=== PATIENT | male | born 1970 | race Caucasian/White ===

== ENCOUNTER → 2019-03-09 | Outpatient (CLI) | payer OTHER, SELFPAY ==
[2019-03-09 12:55] LABS: Absolute Lymphocyte Count 1.18 X10^3/ul (0.83-4.51); Absolute Neutrophil Count 2.2 X10^3/uL (2.0-7.7); Basophil# 0.06 X10^3/uL; Basophil% 1.5 % (0-1); Eosinophil# 0.16 X10^3/uL; Hematocrit 44.1 % (40-54); Hemoglobin 15.4 g/dl (13.0-16.5); Lymphocyte # 1.18 X10^3/ul (4.0); Lymphocyte % 29.4 % (19-41); Mean Corp Hgb Conc 34.9 g/gl (32-36); Mean Corpuscular Hgb 34.3 pg (27.0-32.0); Mean Corpuscular Volume 98.2 fL (80-94); Mean Platelet Vol. 9.2 fl (6.2-12.0); Monocyte# 0.42 X10^3/uL; Monocyte% 10.5 % (0-10); Neutrophil # 2.19 X10^3/uL (2.7-7.7); Neutrophil % 54.6 % (47-70); Platelet Count 272 K/mm3 (150-450); RBC Distribution Width CV 12.7 % (11.6-14.6); RBC Distribution Width SD 44.6 fl (35.1-43.9); Red Blood Count 4.49 M/mm3 (4.6-6.2)
[2019-03-09 12:57] LABS: POSITIVE COUNT NO; POSITIVE DIFFERENTIAL NO; POSITIVE MORPHOLOGY NO
[2019-03-09 13:22] LABS: ALB/GLOB Ratio 1.1 RATIO (0.9-2.4); AST(SGOT) 39 U/L (15-37); Alanine Aminotransfer ALT/SGPT 52 U/L (16-61); Albumin, Serum 4.4 g/dL (3.2-5.0); Alkaline Phosphatase 76 U/L (45-117); Anion Gap 7 (5-15); BUN 9 mg/dL (7-18); BUN/Creat Ratio 10.7 RATIO (10-20); Calcium,Total 9.1 mg/dL (8.5-10.1); Chloride 107 mmol/L (98-107); Creatinine, Serum 0.84 mg/dL (0.70-1.30); EST Glomerular Filtration Rate 104 mL/min (>60); Est Glom Filt Rate - Afr Amer 126 mL/min (>60); Glucose 75 mg/dL (74-106); Potassium 3.7 mmol/L (3.5-5.1); Protein, Total 8.4 g/dL (6.4-8.2); Sodium Level 142 mmol/L (136-145)
[2019-03-13 07:07] LABS: QNTFERON TB Mitogen Value > 10.00 IU/mL (.); QNTFERON TB Nil Value 0.02 IU/mL (.); QNTFERON TB1+ Ag Value 0.03 IU/mL (.); QNTFERON TB2+ Ag Value 0.02 IU/mL (.)
[2019-03-13 17:43] LABS: QNTIFERON TB Positive Criteria Negative (Negative)
== END | disposition home or self-care (01) ==
LOC: MTLAB 11:48
PROVIDERS: Family Provider Family Medicine; PCP Family Medicine; Referring Provider Internal Medicine Rheumatology; Visit Provider Internal Medicine Rheumatology
DX: L40.59 Other psoriatic arthropathy (principal); L40.9 Psoriasis, unspecified; F41.9 Anxiety disorder, unspecified; Z79.899 Other long term (current) drug therapy
CPT/HCPCS: 36415; 80053; 85025; 86480

== ENCOUNTER → 2020-01-18 15:23 | Outpatient (CLI) | payer OTHER, SELFPAY ==
[2020-01-18 17:20] LABS: Absolute Lymphocyte Count 1.29 X10^3/uL (0.83-4.51); Absolute Neutrophil Count 3.5 X10^3/uL (2.0-7.7); Basophil# 0.06 X10^3/uL; Basophil% 1.1 % (0-1); Eosinophil# 0.08 X10^3/uL; Eosinophils% 1.5 % (0-5); Hematocrit 46.1 % (40-54); Lymphocyte # 1.29 X10^3/ul (4.0); Lymphocyte % 23.5 % (19-41); Mean Corp Hgb Conc 32.5 g/dL (32-36); Mean Corpuscular Hgb 30.5 pg (27.0-32.0); Mean Corpuscular Volume 93.9 fL (80-94); Mean Platelet Vol. 8.6 fl (6.2-12.0); Monocyte# 0.56 X10^3/uL; Monocyte% 10.2 % (0-10); NRBC Flagged by Analyzer 0 % (0-5); Neutrophil % 63.5 % (47-70); Platelet Count 301 K/mm3 (150-450); RBC Distribution Width CV 12.3 % (11.6-14.6); RBC Distribution Width SD 42.6 fl (35.1-43.9); Red Blood Count 4.91 M/mm3 (4.6-6.2); White Blood Count 5.5 K/mm3 (4.4-11.0)
[2020-01-18 17:39] LABS: AST(SGOT) 18 U/L (15-37); Alanine Aminotransfer ALT/SGPT 20 U/L (16-61); Albumin, Serum 4.2 g/dL (3.2-5.0); Alkaline Phosphatase 106 U/L (45-117); Anion Gap 3 (5-15); BUN 10 mg/dL (7-18); BUN/Creat Ratio 11.4 RATIO (10-20); Chloride 106 mmol/L (98-107); Creatinine, Serum 0.88 mg/dL (0.70-1.30); EST Glomerular Filtration Rate 99 mL/min (>60); Est Glom Filt Rate - Afr Amer 120 mL/min (>60); Globulin 4.2 g/dL (2.2-4.2); Glucose 77 mg/dL (74-106); Protein, Total 8.4 g/dL (6.4-8.2); Sodium Level 140 mmol/L (136-145)
== END ==
LOC: MTLAB 15:25
PROVIDERS: PCP Family Medicine; Referring Provider Internal Medicine Rheumatology; Visit Provider Internal Medicine Rheumatology
DX: L40.59 Other psoriatic arthropathy (principal); L40.9 Psoriasis, unspecified; F41.9 Anxiety disorder, unspecified; K76.0 Fatty (change of) liver, not elsewhere classified; Z79.899 Other long term (current) drug therapy
CPT/HCPCS: 36415; 80053; 85025

== ENCOUNTER 2021-03-08 14:06 | Emergency (ER) | payer MEDICAID, SELFPAY ==
[2021-03-08 14:07] VITALS: BP 128/83; PULSE 115; RESP 18; TEMP 36.2; O2SAT 97; BMI 25.6
--- NOTE | 2021-03-08 14:13 | ED.VIS.GEN ---
History of Present Illness Chief Complaint: Lower Extremity Injury Informant: Patient Narrative: 50-year-old male with history of psoriatic arthritis presenting with left knee pain and foot pain which has been present for months. To the best I can get the history from the patient as he is a poor informant it seems like it has been between 9 and 10 months. Patient states that he was previously on Humira and believes another medication was Cosentyx. He was seen by Dr. George previously but since he lost his job and insurance he has not been able to follow-up with him. It does not sound as if he has made much effort to establish with somebody in follow-up but has been seen at [facility] a few weeks ago for the same symptoms. He was also seen by his new primary care doctor, Dr. Coffman, who is trying to get him established at [facility] [place]. Patient states he has an appointment next week to be seen and is post to be restarted back on his Humira. He states his primary care doctor could not start him on Humira and so he does not have this. It appears that his left knee has been swollen for several months. He is ambulatory on it. He denies any trauma. He also has redness to his toes bilaterally including all of his toes. He does not have any paresthesias however he states his feet do hurt. He has not had any fever, chills, nausea, vomiting. Past Medical History - Allergies and Home Meds Allergies/Adverse Reactions: Allergies No Known Allergies Allergy (Verified 03/08/21 14:10) Primary Care Physician: Nemesio Coffman MD [Primary Care Provider] - Past Medical History: - - Psoriatic arthritis, anxiety Surgical History: noncontributory Lives: Alone Smoking Status: Unknown if ever smoked Alcohol: None Drugs: None Review of Systems General: Denies: Chills, Fever, Sweats Eyes: Denies: Visual changes - bilaterally, Diplopia ENT: Denies: Rhinorrhea, Sore throat Cardiovascular: Denies: Chest pain, Palpitations Respiratory: Denies: Dyspnea, Cough, Dyspnea on exertion Gastrointestinal: Denies: Abdominal pain, Nausea, Vomiting, Diarrhea, Melena, Hematochezia Genitourinary: Denies: Dysuria, Hematuria, Frequency Musculoskeletal: Reports: Swelling - Left knee pain and swelling. Bilateral toe erythema including all toes. Skin: Reports: Rash - As described above Neurological: Denies: Headache, Weakness Psych: Denies: Depression, Anxiety Endocrine: Denies: Polyuria, Polydipsia Physical Exam Vital Signs/Narrative: Vital Signs Temp Pulse Resp BP Pulse Ox 03/08/21 14:07 97.2 F L 115 H 18 128/83 H 97 Inital Vital Signs reviewed: Yes General: Well nourished, No Acute Distress Head: Normocephalic, Atraumatic Eyes: Perrl, EOMI ENT: Moist mucous membranes, No rhinorrhea Cardiovascular: Regular rate, Regular rhythm Respiratory: No distress, CTA bilaterally Back: Normal Inspection Extremities: - - Left knee is diffusely swollen. It has full range of motion in flexion and extension. No short arc range of motion pain. There is no redness or erythema overlying the left knee. Bilateral feet have erythema X 10 toes. Brisk cap refill X 10 toes. There warmth. DP/PT +2 and symmetric Skin: Normal color - As described above Neurological: Alert, Oriented x3 Psychological: Normal affect, Normal Mood Diagnostic/Tx/Re-eval - Medical Decision Making 50-year-old male presenting with bilateral foot erythema as well as left knee swelling. He has a history of psoriatic arthritis. This appears to be a chronic issue on both parts. Patient was recently seen [facility] a few weeks ago and was put on steroids which did somewhat help. He is also put on Keflex 3 times daily. Patient does have an appointment with [facility]. He is going to see them next week. Patient's left knee is swollen but there is no warmth, loss of range of motion. I do not believe he needs arthrocentesis at this time emergently. I have no suspicion for septic joint. His bilateral feet are erythematous at the toes but this is been ongoing for what sounds like months. Patient has no systemic signs or symptoms. Patient will be started on an extended prednisone taper and placed on clindamycin until he can see his doctor next week. Patient is given return precautions. He is stable at discharge. Impression: 1. History of psoriatic arthritis 2. Left knee swelling ED Disposition - Plan for ED Patient: Disposition: Home or Assisted Living Prescriptions: Clindamycin [Cleocin] 300 mg PO TID 10 Days #90 capsule Prescription Printed Prednisone 10 mg PO DAILY #63 tablet Prescription Printed Referrals: Nemesio Coffman MD [Primary Care Provider] - Dwain Bal DO [STAFF PHYSICIAN] - Additional Instructions: You have psoriatic arthritis and erythema to the toes. I am going to give you antibiotics to make sure that your feet do not worsen. I am also going to place you on an extended prednisone taper intake and follow-up with your rheumatology professional.
[2021-03-08] MEDS: Clindamycin HCl 150 MG Capsule 450 MG PO (15:19)
[2021-03-08] MEDS: HYDROcodone Bitartrate/Apap 5/325 Tablet PO (15:20)
[2021-03-08] MEDS: predniSONE 20 MG Tablet 60 MG PO (15:20)
--- NOTE | 2021-03-08 15:27 | ED.VIS.GEN ---
History of Present Illness Chief Complaint: Lower Extremity Injury Informant: Patient Past Medical History - Allergies and Home Meds Allergies/Adverse Reactions: Allergies No Known Allergies Allergy (Verified 03/08/21 14:10) Primary Care Physician: Dwain Bal DO [STAFF PHYSICIAN] - Nemesio Coffman MD [Primary Care Provider] - Surgical History: noncontributory Lives: Alone Smoking Status: Never smoker Alcohol: None Drugs: None Physical Exam Vital Signs/Narrative: Vital Signs Temp Pulse Resp BP Pulse Ox 03/08/21 14:07 97.2 F L 115 H 18 128/83 H 97 ED Disposition - Plan for ED Patient: Disposition: Home or Assisted Living Instructions: ED Knee Effusion Prescriptions: RX: Clindamycin [Cleocin] 300 mg PO TID 10 Days #90 capsule Prescription Printed RX: Prednisone 10 mg PO DAILY #63 tablet Prescription Printed Referrals: Dwain Bal DO [STAFF PHYSICIAN] - Nemesio Coffman MD [Primary Care Provider] - Additional Instructions: You have psoriatic arthritis and erythema to the toes. I am going to give you antibiotics to make sure that your feet do not worsen. I am also going to place you on an extended prednisone taper intake and follow-up with your rheumatology professional.
== END 2021-03-08 15:30 | disposition home or self-care (01) ==
PROVIDERS: Emergency Provider Student in an Organized Health Care Education/Training Program; PCP Family Medicine
DX: M79.89 Other specified soft tissue disorders (principal)
CPT/HCPCS: 99283

== ENCOUNTER 2021-08-12 13:33 | Inpatient (IN) | payer MEDICAID, SELFPAY ==
[2021-08-12] VITALS (8 sets, daily range): BP systolic 133–166; BP diastolic 88–108; PULSE 80–129; RESP 13–20; TEMP 36.4–37.4; O2SAT 91–99; BMI 25.0; BMI 23.3
--- NOTE | 2021-08-12 13:53 | EKG12_ITS ---
Test Reason : SEIZURE Blood Pressure : / mmHG Vent. Rate : 122 BPM Atrial Rate : 122 BPM P-R Int : 176 ms QRS Dur : 090 ms QT Int : 306 ms P-R-T Axes : 066 064 043 degrees QTc Int : 436 ms Sinus tachycardia Otherwise normal ECG Confirmed by BELIA BETTS, BAUTISTA ([id number]), editor greeting card SAMARA GUNDERSON ([id number]) on 08/17/2021 7:30:19 AM Referred By: SHANNAN Confirmed By:BAUTISTA CELAYA MD
[2021-08-12] MEDS: LORazepam 2 MG/ML Syringe 1 MG IV (14:00)
--- NOTE | 2021-08-12 14:00 | EX.ED.DYSGE1 ---
HPI History of Present Illness Chief Complaint: Substance Abuse Informant: family Narrative Narrative: Patient presented by private vehicle with uncle for alcohol assistance. Upon placement in the room [place] was called due to unresponsiveness with foaming at the mouth. Apparently had a seizure. On arrival patient had some drooling at the mouth there is no active tonic-clonic issues, he awakened with post ictal confusion. History from uncle he has been drinking 30 years. Recently's seen 180 for outpatient help. No seizure history. Last drink was yesterday. History of psoriatic arthritis with injections weekly. History of anxiety not on any medications. Prior similar symptoms: No PFSH PFSH Medical History (Updated 08/12/21 @ 17:[address] Carmella Shay MD) HTN (hypertension) Psoriatic arthritis Home Medications alprazolam 0.5 mg PO TID PRN PRN 08/12/21 [History Last Taken Unknown] atenolol 50 mg PO DAILY 08/12/21 [History Last Taken 08/11/21] Allergy/AdvReac Type Severity Reaction Status Date / Time No Known Allergies Allergy Verified 08/12/21 13:35 Family History (Updated 08/12/21 @ 17:[address] Carmella Shay MD) Mother Cancer breast Father No problems noted. Surgical History (Updated 08/12/21 @ 17:[address] Carmella Shay MD) H/O hernia repair Social History (Updated 08/12/21 @ 17:[address] Carmella Shay MD) household members: none Smoking Status: Never smoker alcohol intake: current substance use type: prescription drug ROS ROS ED ROS Narrative Limited on initial evaluation due to post ictal. EXAM Physical Exam Const Vital Signs: 08/12/21 13:33 08/12/21 14:31 08/12/21 14:33 Temperature 97.6 F L Temperature Source Temporal Pulse Rate 129 H 116 H 115 H Respiratory Rate 16 18 16 Blood Pressure 163/108 H 136/88 H 136/88 H Blood Pressure Mean 126 104 104 Blood Pressure Source Monitor Blood Pressure Position Semi-Fowlers Blood Pressure Location Left Arm Pulse Ox 97 91 91 Oxygen Delivery Method Room Air Room Air Room Air 08/12/21 15:16 Temperature Temperature Source Pulse Rate 108 H Respiratory Rate 13 Blood Pressure 133/95 H Blood Pressure Mean 107 Blood Pressure Source Blood Pressure Position Blood Pressure Location Pulse Ox 97 Oxygen Delivery Method Room Air Positive well nourished and well developed General Appearance ED: well developed and NAD HEENT Reports moist mucous membranes HEENT Narrative: No tongue abrasions. normocephalic and atraumatic Eyes PERRL, EOMs intact bilaterally and conjunctivae normal General Eye ED: Yes normal appearance of both eyes Neck no lymphadenopathy and supple General: Negative for tenderness Chest Wall Chest: Negative for tenderness Resp normal respiratory effort and normal air movement Effort and Inspection: symmetric chest movement; Negative for respiratory distress Cardio regular rhythm and no murmurs Rate: tachycardic Peripheral Pulses: pulses 2+ throughout GI normal to inspection, nondistended, normoactive bowel sounds and non-tender Palpation: Negative for guarding or rebound tenderness present Back/Spine no CVA tenderness and no thoracic nor lumbar tenderness Extremity normal to inspection General Extremety ED: Negative for edema or tenderness General Extremity: Negative for edema Neuro no sensory deficits noted Neuro Narrative: Alert and oriented to person and place on exam. Is off on the year. Moving all 4 extremities. Sensorium / Orientation: awake and alert Skin no rashes or lesions noted and no wounds MDM MDM MDM Narrative Medical decision making narrative: Patient was not an active seizure during my eval mild post ictal. He is tachycardic he is given 1 mg of Ativan. Fluids were given. Labs were drawn noted potassium 3.1 magnesium added. Was ordered for oral potassium. Transaminitis from labs likely from alcohol. Alcohol returned at 54. Tox screen positive for benzos he was given Ativan in addition rediscussion he takes as needed Xanax stating he took 1 mg dose this morning however does not take this often. Heart rate reevaluation improving low 100s. Is alert and oriented x3 and reevaluation. He had no abdominal pain on examination. I discussed with hospitalist, Dr. Shay for admission to [facility] telemetry. Lab Data Attestation: I reviewed the patient's lab results. Labs: Laboratory Results - last 24 hr 08/12/21 08/12/21 08/12/21 13:50 13:50 13:50 WBC 7.0 RBC 4.79 Hgb 16.3 Hct 49.0 MCV 102.3 H MCH 34.0 H MCHC 33.3 RDW Std Deviation 45.5 H RDW Coeff of Josie 12.0 Plt Count 120 L MPV 9.9 Immature Gran % (Auto) 0.300 Neut % (Auto) 66.4 Lymph % (Auto) 18.7 L [place] % (Auto) 13.1 H Eos % (Auto) 0.3 Baso % (Auto) 1.2 H Absolute Neuts (auto) 4.6 Absolute Lymphs (auto) 1.30 Nucleated RBC % 0 Sodium 142 Potassium 3.1 L Chloride 96 L Carbon Dioxide 18.0 L Anion Gap 28 H BUN 5 L Creatinine 1.16 Estim Creat Clear Calc 88.01 Est GFR (MDRD) Af Amer 86 Est GFR (MDRD) Non-Af 71 BUN/Creatinine Ratio 4.3 L Glucose 105 Calcium 9.7 Magnesium Total Bilirubin 3.60 H AST 539 H ALT 193 H Alkaline Phosphatase 208 H Total Protein 9.2 H Albumin 4.4 Globulin 4.8 H Albumin/Globulin Ratio 0.9 TSH Urine Opiates Screen Urine Methadone Screen Ur Barbiturates Screen Ur Phencyclidine Scrn Ur Amphetamines Screen U Methamphetamin-MDMA U Benzodiazepines Scrn Urine Cocaine Screen U Cannabinoids Screen Ur Drug Screen Comment Ethyl Alcohol 54.0 08/12/21 08/12/21 08/12/21 13:50 13:50 13:50 WBC RBC Hgb Hct MCV MCH MCHC RDW Std Deviation RDW Coeff of Josie Plt Count MPV Immature Gran % (Auto) Neut % (Auto) Lymph % (Auto) [place] % (Auto) Eos % (Auto) Baso % (Auto) Absolute Neuts (auto) Absolute Lymphs (auto) Nucleated RBC % Sodium Potassium Chloride Carbon Dioxide Anion Gap BUN Creatinine Estim Creat Clear Calc Est GFR (MDRD) Af Amer Est GFR (MDRD) Non-Af BUN/Creatinine Ratio Glucose Calcium Magnesium 1.5 L Total Bilirubin AST ALT Alkaline Phosphatase Total Protein Albumin Globulin Albumin/Globulin Ratio TSH 0.80 Urine Opiates Screen NEGATIVE Urine Methadone Screen NEGATIVE Ur Barbiturates Screen NEGATIVE Ur Phencyclidine Scrn NEGATIVE Ur Amphetamines Screen NEGATIVE U Methamphetamin-MDMA NEGATIVE U Benzodiazepines Scrn POSITIVE H Urine Cocaine Screen NEGATIVE U Cannabinoids Screen NEGATIVE Ur Drug Screen Comment Ethyl Alcohol EKG Initial EKG: Attestation: I personally reviewed and interpreted this EKG as follows: Comments: Sinus tachycardia rate of 122, no ST or T wave changes. QTc 436. Discharge Plan Dx/Rx/DC Orders Clinical Impression: Alcohol withdrawal seizure, Chronic alcohol abuse, Hypokalemia, Alcoholic hepatitis Disposition Disposition: Acute Care Hospital [facility] Discharge Date/Time: 08/12/21 16:37
--- NOTE | 2021-08-12 14:06 | ED.RN ---
THIS RN WAS WALKING IN THE HALLWAY WHEN UNCLE STEPPED INTO [place] AND STATED THE PATIENT NEEDED HELP. UPON ENTRY TO THE ROOM PT WAS CYANOTIC AND WAS NOT BREATHING. STAFF ASSIST BUTTON PRESSED. PT WAS NOT SEIZING AT THIS TIME. PT RETURNED TO CONSCIOUSNESS 1 MINUTE LATER AND WAS BREATHING UNASSISTED, PT SLIGHTLY DISORIENTED.
--- NOTE | 2021-08-12 14:14 | CM.ED ---
SOCIAL WORK Patient with seizure in ER. Responded to Code. Patient's uncle at bedside. Patient presents for detox from alcohol. Patient and uncle have been in contact with [facility]. Will update Treatment Navigator upon patient's admission. George Worrell, FUR SCRAPER, LAWN SPRINKLER INSTALLER
[2021-08-12 14:22] LABS: Absolute Neutrophil Count 4.6 X10^3/uL (2.0-7.7); Basophil# 0.08 X10^3/uL; Basophil% 1.2 % (0-1); Eosinophil# 0.02 X10^3/uL; Eosinophils% 0.3 % (0-5); Hemoglobin 16.3 g/dL (13.0-16.5); Lymphocyte % 18.7 % (19-41); Mean Corp Hgb Conc 33.3 g/dL (32-36); Mean Corpuscular Volume 102.3 fL (80-94); Mean Platelet Vol. 9.9 fl (6.2-12.0); Monocyte# 0.91 X10^3/uL; Monocyte% 13.1 % (0-10); NRBC Flagged by Analyzer 0 % (0-5); Neutrophil # 4.62 X10^3/uL (2.7-7.7); Neutrophil % 66.4 % (47-70); Platelet Count 120 K/mm3 (150-450); RBC Distribution Width SD 45.5 fl (35.1-43.9); Red Blood Count 4.79 M/mm3 (4.6-6.2)
[2021-08-12] MEDS: 0.9% Normal Saline 1,000 ML 1000 ML IV (14:24)
[2021-08-12] MEDS: 0.9% Normal Saline 1,000 ML 150 ML IV ×2 (14:32→20:47)
[2021-08-12 14:33] LABS: Amphetamine Urine VISTA NEGATIVE (<1000 ng/mL); Barbiturate Urine VISTA NEGATIVE (< 200 ng/mL); Benzodiazepine Urine VISTA POSITIVE (< 200 ng/mL); Cocaine Urine VISTA NEGATIVE (< 300 ng/mL); Ecstacy Urine VISTA NEGATIVE (< 500 ng/mL); Methadone Urine VISTA NEGATIVE (< 300 ng/mL); PCP Urine VISTA NEGATIVE (< 25 ng/mL); THC Urine VISTA NEGATIVE (< 50 ng/mL); Vista UDS pH Range 5
[2021-08-12 14:37] LABS: ALB/GLOB Ratio 0.9 RATIO (0.9-2.4); AST(SGOT) 539 U/L (15-37); Alanine Aminotransfer ALT/SGPT 193 U/L (16-61); Albumin, Serum 4.4 g/dL (3.2-5.0); Alkaline Phosphatase 208 U/L (45-117); Anion Gap 28 (5-15); BUN 5 mg/dL (7-18); BUN/Creat Ratio 4.3 RATIO (10-20); Calcium,Total 9.7 mg/dL (8.5-10.1); Chloride 96 mmol/L (98-107); Creatinine, Serum 1.16 mg/dL (0.70-1.30); EST Glomerular Filtration Rate 71 mL/min (>60); Est Glom Filt Rate - Afr Amer 86 mL/min (>60); Estimated Creatinine Clearance 88.01 ml/min; Globulin 4.8 g/dL (2.2-4.2); Glucose 105 mg/dL (74-106); Potassium 3.1 mmol/L (3.5-5.1); Protein, Total 9.2 g/dL (6.4-8.2); Sodium Level 142 mmol/L (136-145)
--- NOTE | 2021-08-12 14:49 | CHAPLAIN ---
Type of Pastoral Visit ___ Initial Visit ___ Follow-up Visit ___ On-call Visit ___ General Patient Visit ___ Spiritual Assessment ___ Family Conference ___ Bereavement ___ Rapid Response _x__ Code Blue ___ Other (describe below) Pastoral Care Referral From ___ Patient ___ Family ___ Nurse ___ Physician ___ [place] ___ Nipple Maker _x__ Other (describe below) Sacrament/Intervention ___ Active listening ___ Anointing ___ Scientology ___ Bereavement ___ Communion ___ Tami exploration ___ ___ Life review ___ Prayer ___ Reconciliation ___ Sacrament of Sick _x__ Supportive presence ___ Wedding ___ Other (describe below) Pastoral Comments came to ED for the code blue; code blue was dismissed as patient quickly revived; offered support to family member; pt will be staying in hospital to enter the [facility] program due to alcohol abuse; introduced self and role to pt and gave offer of further support while admitted; pt was given meds and is sleepy now
[2021-08-12] MEDS: Potassium Chloride Oral Tablet 20 MEQ 60 MEQ PO ×2 (15:25→17:55)
--- NOTE | 2021-08-12 15:25 | PCM.HP.STD ---
[facility] - General General Date of Admission: 08/12/21 Date of Service: 08/12/21 Chief Complaint: Request for stabilization from alcohol withdrawal. HPI Narrative MYLA OMALLEY, is a 50 M who presents with the above. Patient drinks about half a gallon of rum a day. He has been doing that for about 1 year. His last drink was run with Pepsi the night before. He woke up this morning vomiting. His family member brought him to the ED. Patient had a seizure episode in the ED this afternoon. A CODE BLUE was called because he was unresponsive and foaming at the mouth. Patient was drooling, had post ictal confusion. Apparently had the seizure activity ongoing for about a minute. There were no active tonic-clonic issues. Vitals was reviewed in the ED. Heart rate is elevated. [facility] Medical History (Updated 08/12/21 @ 17:[address] Carmella Shay MD) HTN (hypertension) Psoriatic arthritis Home Medications alprazolam 0.5 mg PO TID PRN PRN 08/12/21 [History Last Taken Unknown] atenolol 50 mg PO DAILY 08/12/21 [History Last Taken 08/11/21] Allergy/AdvReac Type Severity Reaction Status Date / Time No Known Allergies Allergy Verified 08/12/21 13:35 Family History (Updated 08/12/21 @ 17:[address] Carmella Shay MD) Mother Cancer breast Father No problems noted. Surgical History (Updated 08/12/21 @ 17:[address] Carmella Shay MD) H/O hernia repair Social History (Updated 08/12/21 @ 17:[address] Carmella Shay MD) household members: none Smoking Status: Never smoker alcohol intake: current substance use type: prescription drug ROS ROS Narrative Constitutional: Denies: Anorexia, Chills, Fever, Night Sweats, Weight Change, Malaise, Weakness, Fatigue. Eyes: Denies: Blurred vision, Cataracts, Conjunctivae Inflammation, Pain, Redness, Vision Change HEENT: Denies: Difficulty Hearing, Difficulty Swallowing, Head Aches, Hearing Changes, Sinus Congestion, Sinus Drainage Cardiovascular: Admits to dizziness, palpitations denies: Chest Pain, Orthopnea, Palpitations Respiratory: Denies: Cough, Shortness of breath at rest, Sputum production Gastrointestinal: Denies: Abdominal Pain, Nausea, Vomiting Genitourinary: Denies: Dysuria Musculoskeletal: Denies: Joint Pain, Joint stiffness, Joint swelling, Joint Tenderness Skin: Denies: Rash, Wounds Neurological: Denies: Numbness, Tingling, Focal weakness Vital Signs Vital Signs Vital Signs: 08/12/21 13:33 08/12/21 14:31 08/12/21 14:33 Temperature 97.6 F L Temperature Source Temporal Pulse Rate 129 H 116 H 115 H Respiratory Rate 16 18 16 Blood Pressure 163/108 H 136/88 H 136/88 H Blood Pressure Mean 126 104 104 Blood Pressure Source Monitor Blood Pressure Position Semi-Fowlers Blood Pressure Location Left Arm Pulse Ox 97 91 91 Oxygen Delivery Method Room Air Room Air Room Air 08/12/21 15:16 Temperature Temperature Source Pulse Rate 108 H Respiratory Rate 13 Blood Pressure 133/95 H Blood Pressure Mean 107 Blood Pressure Source Blood Pressure Position Blood Pressure Location Pulse Ox 97 Oxygen Delivery Method Room Air Weight Weight: 86.183 kg Body Mass Index (BMI) 25.0 Physical Exam Narrative General: Alert, Oriented x3, Cooperative, No apparent distress HEENT: Atraumatic, PERRLA, EOMI, Normocephalic Oral: Moist Mucosa Neck: Supple Lungs: Normal air movement, Diminished Cardiovascular: Regular rate, Regular Rhythm, Normal S1, Normal S2, No murmurs Abdomen: Bowel Sounds Present, Soft, Non Tender, Non-Distended, No Hepato-splenomegaly Extremities: No edema Skin: Some reddish rash over the forehead, nonpruritic Neurological: Cranial nerves II-XII grossly intact, Neuro grossly intact Psych/Mental Status: Normal Affect, Appropriate exam Results Lab / Micro Data Result Diagrams: 08/12/21 13:50 08/12/21 13:50 Labs: Laboratory Results - last 24 hr 08/12/21 13:50: WBC 7.0, RBC 4.79, Hgb 16.3, Hct 49.0, MCV 102.3 H, MCH 34.0 H, MCHC 33.3, RDW Std Deviation 45.5 H, RDW Coeff of Josie 12.0, Plt Count 120 L, MPV 9.9, Immature Gran % (Auto) 0.300, Neut % (Auto) 66.4, Lymph % (Auto) 18.7 L, [place] % (Auto) 13.1 H, Eos % (Auto) 0.3, Baso % (Auto) 1.2 H, Absolute Neuts (auto) 4.6, Absolute Lymphs (auto) 1.30, Nucleated RBC % 0 08/12/21 13:50: Sodium 142, Potassium 3.1 L, Chloride 96 L, Carbon Dioxide 18.0 L, Anion Gap 28 H, BUN 5 L, Creatinine 1.16, Estim Creat Clear Calc 88.01, Est GFR (MDRD) Af Amer 86, Est GFR (MDRD) Non-Af 71, BUN/Creatinine Ratio 4.3 L, Glucose 105, Calcium 9.7, Total Bilirubin 3.60 H, AST 539 H, ALT 193 H, Alkaline Phosphatase 208 H, Total Protein 9.2 H, Albumin 4.4, Globulin 4.8 H, Albumin/Globulin Ratio 0.9 08/12/21 13:50: Ethyl Alcohol 54.0 08/12/21 13:50: Urine Opiates Screen NEGATIVE, Urine Methadone Screen NEGATIVE, Ur Barbiturates Screen NEGATIVE, Ur Phencyclidine Scrn NEGATIVE, Ur Amphetamines Screen NEGATIVE, U Methamphetamin-MDMA NEGATIVE, U Benzodiazepines Scrn POSITIVE H, Urine Cocaine Screen NEGATIVE, U Cannabinoids Screen NEGATIVE, Ur Drug Screen Comment Micro: Microbiology 08/12/21 14:28 Nasal Secretion SARS-CoV-2 Antigen (Rapid) - Final Assessment & Plan Assessment/Plan (1) Alcohol withdrawal seizure: QUALIFIERS: Complication of substance-induced condition: uncomplicated Qualified Code(s): F10.230 - Alcohol dependence with withdrawal, uncomplicated; R56.9 - Unspecified convulsions (2) Chronic alcohol abuse: (3) Hypokalemia: PLAN: 1. Acute alcohol withdrawal with alcohol withdrawal seizure Patient with heavy alcohol use?half a gallon of rum a day Request medical stabilization We will admit to [facility], continue on the phenobarbital withdrawal protocol with Ativan as needed as needed 2. Chronic benzo use, would continue on Xanax 3. Hypokalemia/hypomagnesemia, replaced, recheck in am 4. Psoriatic arthritis, follows in the outpatient Charges/Coding Visit Charges Inpatient E&M: 64672 Init Hosp L3
[2021-08-12 15:26] LABS: Magnesium 1.5 mg/dL (1.6-2.6)
[2021-08-12] MEDS: Ondansetron 4 MG/2 ML Vial IV (15:32)
--- NOTE | 2021-08-12 15:34 | ED.RN ---
rn administering PO potassium. Pt got 40 meq in when he began vomiting. dr harris notified and states to give 4mg iv zofran and attempt another 20meq.
--- NOTE | 2021-08-12 16:15 | CM.ED ---
SOCIAL WORK [place], Addiction Therapist notified of admission to [facility]. George Worrell, BOX GLUER, DEVELOPMENT INTERN
[2021-08-12] MEDS: Atenolol 50 MG Tablet PO (17:23)
[2021-08-12] MEDS: Ibuprofen 600 MG Tablet PO (17:23)
[2021-08-12] MEDS: Phenobarbital 32.4 MG Tablet 64.8 MG PO ×2 (17:23→20:48)
[2021-08-12] MEDS: Thiamine Hydrochloride 100 MG Tablet PO (17:24)
[2021-08-12] MEDS: Folic Acid 1 MG Tablet PO (17:24)
[2021-08-12] MEDS: Magnesium Sulfate 4gm/100mL 4 GM/100 ML IV.SOLN. IV (17:25)
[2021-08-13] VITALS (8 sets, daily range): BP systolic 125–148; BP diastolic 77–99; PULSE 62–93; RESP 12–18; TEMP 36.2–37.2; O2SAT 95–99
[2021-08-13] MEDS: Ibuprofen 600 MG Tablet PO (00:37)
[2021-08-13] MEDS: Phenobarbital 32.4 MG Tablet 64.8 MG PO ×6 (00:38→20:40)
[2021-08-13] MEDS: 0.9% Normal Saline 1,000 ML 150 ML IV (03:17)
[2021-08-13] MEDS: Folic Acid 1 MG Tablet PO (08:04)
[2021-08-13] MEDS: Thiamine Hydrochloride 100 MG Tablet PO (08:04)
[2021-08-13] MEDS: Atenolol 50 MG Tablet PO (09:45)
--- NOTE | 2021-08-13 10:53 | PN.HOSP_ITS ---
Subjective Subjective Currently, denies any significant withdrawal symptoms. Objective Data Objective Data Vital Signs: Vital Signs Temp Pulse Resp BP Pulse Ox 99 F 93 18 145/77 H 95 08/13/21 09:00 08/13/21 09:00 08/13/21 09:00 08/13/21 09:00 08/13/21 09:00 Oxygen Delivery Method Room Air Weight: 177 lb 2 oz Body Mass Index (BMI) 23.3 Intake & Output: Intake and Output for Last 24 Hours 08/12/21 08/13/21 08/14/21 03:59 03:59 03:59 Intake Total 2800.0 / 2800.0 600 / 600 Output Total 100 / 100 250 / 250 Balance 2700.0 / 2700.0 350 / 350 Lab / Micro Data Result Diagrams: 08/12/21 13:50 08/12/21 13:50 Labs: Laboratory Results - last 24 hr 08/12/21 13:50: WBC 7.0, RBC 4.79, Hgb 16.3, Hct 49.0, MCV 102.3 H, MCH 34.0 H, MCHC 33.3, RDW Std Deviation 45.5 H, RDW Coeff of Josie 12.0, Plt Count 120 L, MPV 9.9, Immature Gran % (Auto) 0.300, Neut % (Auto) 66.4, Lymph % (Auto) 18.7 L, [place] % (Auto) 13.1 H, Eos % (Auto) 0.3, Baso % (Auto) 1.2 H, Absolute Neuts (auto) 4.6, Absolute Lymphs (auto) 1.30, Nucleated RBC % 0 08/12/21 13:50: Sodium 142, Potassium 3.1 L, Chloride 96 L, Carbon Dioxide 18.0 L, Anion Gap 28 H, BUN 5 L, Creatinine 1.16, Estim Creat Clear Calc 88.01, Est GFR (MDRD) Af Amer 86, Est GFR (MDRD) Non-Af 71, BUN/Creatinine Ratio 4.3 L, Glucose 105, Calcium 9.7, Total Bilirubin 3.60 H, AST 539 H, ALT 193 H, Alkaline Phosphatase 208 H, Total Protein 9.2 H, Albumin 4.4, Globulin 4.8 H, Albumin/Globulin Ratio 0.9 08/12/21 13:50: Ethyl Alcohol 54.0 09/29/21 13:50: Urine Opiates Screen NEGATIVE, Urine Methadone Screen NEGATIVE, Ur Barbiturates Screen NEGATIVE, Ur Phencyclidine Scrn NEGATIVE, Ur Amphetamines Screen NEGATIVE, U Methamphetamin-MDMA NEGATIVE, U Benzodiazepines Scrn POSITIVE H, Urine Cocaine Screen NEGATIVE, U Cannabinoids Screen NEGATIVE, Ur Drug Screen Comment 08/12/21 13:50: Magnesium 1.5 L 08/12/21 13:50: TSH 0.80 Micro: Microbiology 08/12/21 14:28 Nasal Secretion SARS-CoV-2 Antigen (Rapid) - Final Physical Exam Const alert, oriented x3 and no apparent distress General Appearance: cooperative HEENT normocephalic and moist oral mucous membranes Eyes PERRL, EOMs intact bilaterally and conjunctivae normal Neck supple and no JVD Resp normal respiratory effort, no retractions, no use of accessory muscles and clear to auscultation bilaterally Auscultation: Negative for crackles, rales, rhonchi or wheezes Cardio regular rate, regular rhythm, S1 normal heart sound, S2 normal heart sound and no murmurs GI soft to palpation, non-tender and non-distended; Negative for hepatosplenomegaly Extremity no clubbing, cyanosis or edema Skin no rashes or lesions noted Neuro no focal motor deficits and no sensory deficits noted Psych affect normal Appearance: appropriate Assessment & Plan Assessment/Plan (1) Alcohol withdrawal seizure: QUALIFIERS: Complication of substance-induced condition: uncomplicated Qualified Code(s): F10.230 - Alcohol dependence with withdrawal, uncomplicated; R56.9 - Unspecified convulsions (2) Chronic alcohol abuse: (3) Hypokalemia: PLAN: 1. Acute alcohol withdrawal with alcohol withdrawal seizure/chronic benzo use -Continue with phenobarbital withdrawal protocol, seems to be doing well -Continue seizure precautions -Continue with Xanax -We will recheck and monitor his electrolytes 2. Psoriatic arthritis -Follows as an outpatient DVT: Ambulation Charges/Coding Visit Charges Inpatient E&M: 18017 Subs Hosp L2
--- NOTE | 2021-08-13 11:01 | ADDICTION ---
This typewriter ribbon winder met with PT to conduct ASAM, MSE, AUDIT assessments and to plan for d/c. PT A+Ox4 and participated actively. All assessments completed, D/c plan will be faxed to [facility] once placement identified and placed in PT's chart.
--- NOTE | 2021-08-13 15:02 | CHAPLAIN ---
Type of Pastoral Visit _x__ Initial Visit ___ Follow-up Visit ___ On-call Visit ___ General Patient Visit ___ Spiritual Assessment ___ Family Conference ___ Bereavement ___ Rapid Response ___ Code Blue ___ Other (describe below) Pastoral Care Referral From _x__ Patient ___ Family ___ Nurse ___ Physician ___ Gas Systems Worker ___ Broadband Engineer ___ Other (describe below) Sacrament/Intervention _x__ Active listening ___ Anointing ___ Mormonism ___ Bereavement ___ Communion _x__ Tami exploration ___ _x__ Life review _x__ Prayer ___ Reconciliation ___ Sacrament of Sick _x__ Supportive presence ___ Wedding ___ Other (describe below) Pastoral Comments patient welcomes someone to talk with as he says I'm bored; patient reviews his current situation and then goes into pieces of his life story; as time is given the patient is more forthcoming about his alcohol abuse and need/desire to get treatment; pt has had times of sobriety; pt has family encouragement as also admits I have had relatives of alcoholism; pt is unemployed at this time but has been a functioning employee; pt states that he grew up in orthodox and still believes, but some would say I am a backslider; pt continues to talk and to process what brought him to this point in life and what options he has to make better choices; pt welcomes prayer and emotional support
[2021-08-13] MEDS: 0.9% Saline Lock 10 ML Syringe IV (20:40)
[2021-08-13] MEDS: traZODone 100 MG Tablet PO (20:57)
--- NOTE | 2021-08-13 22:23 | PCS.PANDOC ---
PANDEMIC DOCUMENTATION INITIATED: Date: 08/12/2021 Time: 190
[2021-08-14 01:29] VITALS: BP 132/79; PULSE 79; RESP 16; TEMP 37.2; O2SAT 98
[2021-08-14] MEDS: Phenobarbital 32.4 MG Tablet 64.8 MG PO ×2 (01:31→05:37)
[2021-08-14 05:34] VITALS: BP 138/97; PULSE 79; RESP 16; TEMP 37; O2SAT 99
[2021-08-14 06:29] LABS: Anion Gap 6 (5-15); BUN 5 mg/dL (7-18); BUN/Creat Ratio 6.4 RATIO (10-20); Calcium,Total 8.7 mg/dL (8.5-10.1); Chloride 99 mmol/L (98-107); Creatinine, Serum 0.78 mg/dL (0.70-1.30); EST Glomerular Filtration Rate 113 mL/min (>60); Est Glom Filt Rate - Afr Amer 136 mL/min (>60); Estimated Creatinine Clearance 130.89 ml/min; Glucose 91 mg/dL (74-106); Magnesium 1.9 mg/dL (1.6-2.6); Potassium 4.2 mmol/L (3.5-5.1); Sodium Level 135 mmol/L (136-145)
[2021-08-14] MEDS: Thiamine Hydrochloride 100 MG Tablet PO (08:10)
[2021-08-14] MEDS: Folic Acid 1 MG Tablet PO (08:10)
[2021-08-14] MEDS: Atenolol 50 MG Tablet PO (08:11)
[2021-08-14 08:19] VITALS: BP 144/97; PULSE 91; RESP 18; TEMP 37.4; O2SAT 97
[2021-08-14] MEDS: ALPRAZolam 0.5 MG Tablet PO (08:23)
--- NOTE | 2021-08-14 09:48 | NURSING ---
Pt restless this morning. Pt denies need for prn's and that he is restless/anious but tells this nurse he is ready to leave today. Now pt is leaving AMA and took out his Iv. Dr. Oleary is aware.
--- NOTE | 2021-08-14 11:03 | PCM.PN.HOSP ---
Subjective Subjective Says that he is fine he wants to go home, he still has a slight tremor. I discussed with him that usually we do not even consider discharge until about day 3 especially with alcohol withdrawals however he states that it is day 3 and he wants to go home. Objective Data Objective Data Vital Signs: Vital Signs Temp Pulse Resp BP Pulse Ox 99.4 F H 91 18 144/97 H 97 08/14/21 08:19 08/14/21 08:19 08/14/21 08:19 08/14/21 08:19 08/14/21 08:19 Oxygen Delivery Method Room Air Weight: 177 lb 2.016 oz Body Mass Index (BMI) 23.3 Intake & Output: Intake and Output for Last 24 Hours 08/13/21 08/14/21 08/15/21 03:59 03:59 03:59 Intake Total 2900.0 / 2900.0 2750 / 2750 Output Total 100 / 100 250 / 250 Balance 2800.0 / 2800.0 2500 / 2500 Lab / Micro Data Result Diagrams: 08/12/21 13:50 08/14/21 05:24 Labs: Laboratory Results - last 24 hr 08/14/21 05:24: Sodium 135 L, Potassium 4.2, Chloride 99, Carbon Dioxide 30.0, Anion Gap 6, BUN 5 L, Creatinine 0.78, Estim Creat Clear Calc 130.89, Est GFR (MDRD) Af Amer 136, Est GFR (MDRD) Non-Af 113, BUN/Creatinine Ratio 6.4 L, Glucose 91, Calcium 8.7, Magnesium 1.9 Micro: Microbiology 08/12/21 14:28 Nasal Secretion SARS-CoV-2 Antigen (Rapid) - Final Physical Exam Const alert, oriented x3 and no apparent distress Constitutional Narrative: Bilateral hand tremors General Appearance: cooperative HEENT normocephalic and moist oral mucous membranes Eyes PERRL, EOMs intact bilaterally and conjunctivae normal Neck supple and no JVD Resp normal respiratory effort, no retractions, no use of accessory muscles and clear to auscultation bilaterally Auscultation: Negative for crackles, rales, rhonchi or wheezes Cardio regular rate, regular rhythm, S1 normal heart sound, S2 normal heart sound and no murmurs GI soft to palpation, non-tender and non-distended; Negative for hepatosplenomegaly Extremity no clubbing, cyanosis or edema Skin no rashes or lesions noted Neuro no focal motor deficits and no sensory deficits noted Psych affect normal Appearance: appropriate Assessment & Plan Assessment/Plan (1) Alcohol withdrawal seizure: QUALIFIERS: Complication of substance-induced condition: uncomplicated Qualified Code(s): F10.230 - Alcohol dependence with withdrawal, uncomplicated; R56.9 - Unspecified convulsions (2) Chronic alcohol abuse: (3) Hypokalemia: PLAN: 1. Acute alcohol withdrawal with alcohol withdrawal seizure/chronic benzo use -Continue with phenobarbital withdrawal protocol, seems to be doing well -Continue seizure precautions -Continue with Xanax -Magnesium is corrected -Discussed the need for continued phenobarbital state he says that he is fine and he wants to go home I told him that today is day 2 of his course and that sometimes alcohol withdrawals can need 4 or 5days to completely resolve, and he says it is day 3 and that he does want to be here any longer and I told him that if he wants to leave he can sign out AMA which he did 2. Psoriatic arthritis -Follows as an outpatient DVT: Ambulation Charges/Coding Visit Charges Inpatient E&M: 06709 Subs Hosp L2
== END 2021-08-14 09:45 | disposition left against medical advice (07) | DRG 770 ==
LOC: ED 15:28 → MS3 16:02
PROVIDERS: Admitting Provider Internal Medicine; Emergency Provider Emergency Medicine; PCP Family Medicine; Visit Provider Family Medicine
DX: F10.230 Alcohol dependence with withdrawal, uncomplicated (principal); R56.9 Unspecified convulsions; L40.50 Arthropathic psoriasis, unspecified; I10 Essential (primary) hypertension; E87.6 Hypokalemia; K70.10 Alcoholic hepatitis without ascites; Z79.899 Other long term (current) drug therapy; E83.42 Hypomagnesemia
CPT/HCPCS: 36415; 80048; 80053; 80307; 82077; 83735; 84443; 85025; 87426; 93005; 97802; 99285; J7030; A4216; J2405

== ENCOUNTER 2021-09-21 11:33 | Emergency (ER) | payer MEDICAID, SELFPAY ==
[2021-09-21 11:35] VITALS: BP 141/103; PULSE 102; RESP 18; TEMP 36.4; O2SAT 100; BMI 23.7
[2021-09-21 13:55] LABS: Absolute Lymphocyte Count 0.81 X10^3/uL (0.83-4.51); Absolute Neutrophil Count 2.2 X10^3/uL (2.0-7.7); Basophil# 0.06 X10^3/uL; Basophil% 1.5 % (0-1); Eosinophil# 0.21 X10^3/uL; Eosinophils% 5.3 % (0-5); Hematocrit 38.8 % (40-54); Hemoglobin 13.7 g/dL (13.0-16.5); Lymphocyte # 0.81 X10^3/ul (0.83-4.51); Lymphocyte % 20.3 % (19-41); Mean Corp Hgb Conc 35.3 g/dL (32-36); Mean Corpuscular Hgb 35.1 pg (27.0-32.0); Mean Corpuscular Volume 99.5 fL (80-94); Monocyte# 0.67 X10^3/uL; Monocyte% 16.8 % (0-10); NRBC Flagged by Analyzer 0 % (0-5); Neutrophil # 2.24 X10^3/uL (2.7-7.7); Neutrophil % 55.8 % (47-70); Platelet Count 185 K/mm3 (150-450); RBC Distribution Width CV 12.5 % (11.6-14.6); RBC Distribution Width SD 45.7 fl (35.1-43.9)
[2021-09-21 14:04] LABS: Anion Gap 3 (5-15); BUN 7 mg/dL (7-18); BUN/Creat Ratio 10.4 RATIO (10-20); Calcium,Total 9.4 mg/dL (8.5-10.1); Chloride 99 mmol/L (98-107); Creatinine, Serum 0.67 mg/dL (0.70-1.30); EST Glomerular Filtration Rate 133 mL/min (>60); Est Glom Filt Rate - Afr Amer 161 mL/min (>60); Estimated Creatinine Clearance 152.38 ml/min; Glucose 91 mg/dL (74-106); Sodium Level 137 mmol/L (136-145)
[2021-09-21 14:08] LABS: Bacteria 0 SEEN /hpf (None Seen)
[2021-09-21 14:10] LABS: Color, Urine Yellow (Yellow); Glucose, Dipstick Normal (Normal); Ketone-Dipstick 15 mg/dl (Negative); Leukocyte Esterase-Dipstick 25 /ul (Negative); Nitrite-Dipstick Negative (Negative); Occult Blood-Urine 10 /ul (Negative); Protein-Dipstick 15 mg/dl (Negative); Specific Gravity, Urine 1.015 (1.002-1.030); Urine Clarity Sl. Cloudy (Clear); Urine Urobilinogen 8 mg/dl (Normal)
[2021-09-21 14:12] LABS: Urine Bilirubin Dipstick 3 mg/dL (Negative)
[2021-09-21 14:18] LABS: Mucous, Urine 2+ /hpf (<or=2+); Red Blood Cells-Urine 0-5 SEEN /hpf (0-5); Squamous Epithelial Cells - UA 0-5 SEEN /hpf (0-5); White Blood Cells 0-5 SEEN /hpf (0-5)
[2021-09-21 14:19] LABS: Amphetamine Urine VISTA NEGATIVE (<1000 ng/mL); Barbiturate Urine VISTA POSITIVE (< 200 ng/mL); Benzodiazepine Urine VISTA POSITIVE (< 200 ng/mL); Cocaine Urine VISTA NEGATIVE (< 300 ng/mL); Ecstacy Urine VISTA NEGATIVE (< 500 ng/mL); Methadone Urine VISTA NEGATIVE (< 300 ng/mL); PCP Urine VISTA NEGATIVE (< 25 ng/mL); THC Urine VISTA NEGATIVE (< 50 ng/mL); Vista UDS pH Range 5
--- NOTE | 2021-09-21 14:29 | EDS_ITS ---
HPI History of Present Illness Chief Complaint: Substance Abuse Narrative Narrative: Patient presenting for detox. He states that he was drinking half a gallon of rum and coke a day but was able to wean this down to a gallon over 3 days. He states he abruptly quit on . Tuesday he did feel shaky and Tuesday discontinued. Yesterday he states was the worst although he did not have any seizures and has shakiness has improved. He has not had anything to drink. He is concerned that he may need a couple of days of detox. Patient states he has not done any drugs other than the alcohol. [facility] Medical History Anxiety HTN (hypertension) Psoriatic arthritis Home Medications alprazolam 0.5 mg PO TID PRN PRN 08/12/21 [History Last Taken Unknown] atenolol 50 mg PO DAILY 08/12/21 [History Last Taken 08/11/21] Allergy/AdvReac Type Severity Reaction Status Date / Time No Known Allergies Allergy Verified 09/21/21 11:36 Family History Mother Cancer breast Father No problems noted. Surgical History H/O hernia repair Social History household members: none Smoking Status: Never smoker alcohol intake: current substance use type: prescription drug ROS ROS ED Constitutional Constitutional ED: Denies chills or fever(s) Eyes Eyes: Denies blurry vision or diplopia ENT ENT ED: Denies rhinorrhea or sore throat Cardiovascular Cardiovascular: Denies chest pain or palpitations Respiratory/Chest Respiratory/Chest: Denies dyspnea Gastrointestinal Gastrointestinal: Denies abdominal pain, nausea or vomiting Genitourinary Genitourinary ED: Denies dysuria or urinary frequency Musculoskeletal Musculoskeletal: Denies arthralgias or myalgias Integumentary Denies abscess or rash Neurologic Neurologic: Denies headache(s) or paresthesias EXAM Physical Exam Const Vital Signs: 09/21/21 11:35 Temperature 97.6 F L Temperature Source Temporal Pulse Rate 102 H Respiratory Rate 18 Blood Pressure 141/103 H Blood Pressure Mean 115 Pulse Ox 100 Oxygen Delivery Method Room Air Positive well nourished General Appearance ED: NAD; Negative for pallor HEENT Reports normocephalic, head/scalp atraumatic and moist mucous membranes Eyes PERRL and EOMs intact bilaterally Neck no lymphadenopathy and supple Chest Wall inspection of chest normal and palpation of chest normal Resp normal respiratory effort and clear to auscultation bilaterally Auscultation: Negative for rales, rhonchi or wheezes Cardio regular rate and regular rhythm GI normal to inspection, nondistended, normoactive bowel sounds Auscultation: normoactive bowel sounds Palpation: soft Narrative: Deferred Extremity normal to inspection General Extremety ED: Negative for edema or tenderness General Extremity: Negative for edema Neuro oriented x3 and CN's II-XII intact bilaterally Sensorium / Orientation: alert Motor Exam: strength 5/5 throughout Psych mental status grossly normal Attitude: No agitated Skin no rashes or lesions noted and no wounds General Skin Exam: Negative for jaundice or pallor MDM MDM MDM Narrative Medical decision making narrative: Patient presenting for detox. Although at this time he has only some minimal shaking which occurred early this morning. His blood work is fairly unremarkable with exception of his potassium of 3.0. His drug screen is positive for benzos and benzodiazepines. He did not admit to taking any of these medications with exception of his last admission. Patient was cussed with the hospitalist. Dr. Hanks is currently trying to set him up for outpatient follow-up for his EtOH abuse. Patient spoke with his addiction counselor. Currently between them and social work I do not believe he needs to be hospitalized. He will follow up outpatient as he does not have any symptoms of withdrawal currently. Patient is given return precautions. Impression: 1. History of alcohol abuse 2. Hypokalemia Lab Data Labs: Laboratory Results - last 24 hr 09/21/21 09/21/21 09/21/21 13:37 13:37 13:37 WBC 4.0 L RBC 3.90 L Hgb 13.7 Hct 38.8 L MCV 99.5 H MCH 35.1 H MCHC 35.3 RDW Std Deviation 45.7 H RDW Coeff of Josie 12.5 Plt Count 185 MPV 9.0 Immature Gran % (Auto) 0.300 Neut % (Auto) 55.8 Lymph % (Auto) 20.3 [place] % (Auto) 16.8 H Eos % (Auto) 5.3 H Baso % (Auto) 1.5 H Absolute Neuts (auto) 2.2 Absolute Lymphs (auto) 0.81 L Nucleated RBC % 0 Sodium 137 Potassium 3.0 L Chloride 99 Carbon Dioxide 35.0 H Anion Gap 3 L BUN 7 Creatinine 0.67 L Estim Creat Clear Calc 152.38 Est GFR (MDRD) Af Amer 161 Est GFR (MDRD) Non-Af 133 BUN/Creatinine Ratio 10.4 Glucose 91 Calcium 9.4 Urine Color Urine Clarity Urine pH Ur Specific Kathleen Urine Protein Urine Glucose (UA) Urine Ketones Urine Occult Blood Urine Nitrite Urine Bilirubin Urine Urobilinogen Ur Leukocyte Esterase Urine RBC Urine WBC Ur Squamous Epith Cells Urine Bacteria Urine Mucus Urine Opiates Screen Urine Methadone Screen Ur Barbiturates Screen Ur Phencyclidine Scrn Ur Amphetamines Screen U Methamphetamin-MDMA U Benzodiazepines Scrn Urine Cocaine Screen U Cannabinoids Screen Ur Drug Screen Comment Ethyl Alcohol 5.0 09/21/21 09/21/21 14:00 14:00 WBC RBC Hgb Hct MCV MCH MCHC RDW Std Deviation RDW Coeff of Josie Plt Count MPV Immature Gran % (Auto) Neut % (Auto) Lymph % (Auto) [place] % (Auto) Eos % (Auto) Baso % (Auto) Absolute Neuts (auto) Absolute Lymphs (auto) Nucleated RBC % Sodium Potassium Chloride Carbon Dioxide Anion Gap BUN Creatinine Estim Creat Clear Calc Est GFR (MDRD) Af Amer Est GFR (MDRD) Non-Af BUN/Creatinine Ratio Glucose Calcium Urine Color Yellow Urine Clarity Sl. Cloudy Urine pH 6.0 Ur Specific [place] 1.015 Urine Protein 15 H Urine Glucose (UA) Normal Urine Ketones 15 H Urine Occult Blood 10 H Urine Nitrite Negative Urine Bilirubin 3 H Urine Urobilinogen 8 H Ur Leukocyte Esterase 25 H Urine RBC 0-5 SEEN Urine WBC 0-5 SEEN Ur Squamous Epith Cells 0-5 SEEN Urine Bacteria 0 SEEN Urine Mucus 2+ Urine Opiates Screen NEGATIVE Urine Methadone Screen NEGATIVE Ur Barbiturates Screen POSITIVE H Ur Phencyclidine Scrn NEGATIVE Ur Amphetamines Screen NEGATIVE U Methamphetamin-MDMA NEGATIVE U Benzodiazepines Scrn POSITIVE H Urine Cocaine Screen NEGATIVE U Cannabinoids Screen NEGATIVE Ur Drug Screen Comment Ethyl Alcohol Discharge Plan Triage Chief Complaint: Substance Abuse Other Complaint: ETOH Intox ED Provider: Darian Calloway Dx/Rx/DC Orders Instructions: ED Hypokalemia, ED Alcohol Abuse Prescriptions: No Action alprazolam 0.5 mg tablet 0.5 mg PO TID PRN PRN (Reason: Anxiety) RF: 0 atenolol 50 mg tablet 50 mg PO DAILY RF: 0 Primary Care Provider: Nemesio Coffman Referrals: Nemesio Coffman MD [Primary Care Provider] - Disposition Disposition: Home, Self Care
--- NOTE | 2021-09-21 14:50 | CM.ED ---
SOCIAL WORK Referral Source: Dr. Calloway Reason for Consult: Substance Abuse-requesting alcohol detox Patient reported need for alcohol detox. Patient states last drink was . Patient voiced no s/s of withdrawal. Phone call was facilitated to Addiction Therapist, Isamar. After discussing with Isamar, patient stated had court appointment on Tuesday due to a DUI and was hoping detox would help. Isamar discussed options. Patient reported able to return home and will follow up with [facility] location. Patient was provided with address and phone number. Dr. Calloway updated on the above. Plan: Home with plan to follow [facility] outpatient services. George Worrell, MODEL TECHNICIAN, PRINT SHOP CHIEF CLERK
[2021-09-21] MEDS: Potassium Chloride Oral Tablet 20 MEQ 40 MEQ PO (15:20)
== END 2021-09-21 15:23 | disposition home or self-care (01) ==
PROVIDERS: Emergency Provider Student in an Organized Health Care Education/Training Program; PCP Family Medicine
DX: E87.6 Hypokalemia (principal); F10.129 Alcohol abuse with intoxication, unspecified; F41.9 Anxiety disorder, unspecified; I10 Essential (primary) hypertension; Z79.899 Other long term (current) drug therapy
CPT/HCPCS: 80048; 80307; 81001; 82077; 85025; 99283; A4216

== ENCOUNTER 2025-03-15 13:41 | Emergency (ER) | payer OTHER, SELFPAY ==
[2025-03-15 13:42] VITALS: BP 150/91; PULSE 94; RESP 16; TEMP 36.9; O2SAT 100; BMI 29.0
--- NOTE | 2025-03-15 14:18 | EX.ED.DYSGE1 ---
HPI History of Present Illness Chief Complaint: Rash Informant: patient Narrative Narrative: 54-year-old male has had a full body rash for the last month. Very pruritic no pain. No systemic symptoms or fevers or tongue swelling, hand or foot edema, or dyspnea/wheezing. No presyncope or syncope. He states he works a lot a lot of chemicals at work and he can even start to identify them because there are so many. He states there are a lot of powders that he works with so they get on him and it is hard to prevent. He states in the last couple weeks it is really gotten worse, and he wants to try some steroids. He tried that at the beginning, but the rash was mild and did not seem to make a huge difference. He states that the timing of the chemical exposure and outs of the rash does make sense. He states he has had this before and thinks it was a reaction to something else, but not nearly as bad as this. This is all over his body. He said no medication changes. He takes lisinopril, BuSpar, and Celebrex. He is on no other medications, and taking no antibiotics recently or anticonvulsants. [facility] Medical History Anxiety Psoriatic arthritis HTN (hypertension) Home Medications ?Medication ?Instructions ?Recorded ?Last Taken ?Type alprazolam 0.5 mg tablet 0.5 mg PO TID PRN PRN Anxiety 08/12/21 Unknown History atenolol 50 mg tablet 50 mg PO DAILY 08/12/21 08/11/21 History prednisone 10 mg tablet 10 mg PO UD #30 tabs 03/15/25 Unknown Rx Allergy/AdvReac Type Severity Reaction Status Date / Time No Known Allergies Allergy Verified 03/15/25 13:44 Family History Mother Cancer breast Father No problems noted. Surgical History H/O hernia repair Social History household members: none Smoking Status: Never smoker alcohol intake: current substance use type: prescription drug ROS ROS ED Constitutional Constitutional ED: Denies chills or fever(s) Eyes Eyes: Denies change in vision or diplopia ENT ENT ED: Denies rhinorrhea or sore throat Cardiovascular Cardiovascular: Denies chest pain or palpitations Respiratory/Chest Respiratory/Chest: Denies cough or dyspnea Gastrointestinal Gastrointestinal: Denies abdominal pain, diarrhea, nausea or vomiting Genitourinary Genitourinary ED: Denies dysuria or hematuria Musculoskeletal Musculoskeletal: Denies back pain or neck pain Integumentary Reports pruritus and rash; Denies abscess Neurologic Neurologic: Denies headache(s), paresthesias or weakness Psychiatric Psychiatric: Denies anxiety or suicidal thoughts EXAM Physical Exam Const Vital Signs: 03/15/25 13:42 Temperature 98.5 F Temperature Source Oral Pulse Rate 94 Respiratory Rate 16 Blood Pressure 150/91 H Blood Pressure Mean 110 Pulse Ox 100 Oxygen Delivery Method Room Air Positive well nourished and well developed General Appearance ED: well developed and NAD HEENT Reports moist mucous membranes normocephalic and atraumatic Eyes PERRL and EOMs intact bilaterally Eyes Narrative: Normal conjunctiva/eyes Neck full ROM and supple Resp normal respiratory effort and clear to auscultation bilaterally Extremity General Extremety ED: Negative for edema, pulses abnormal or tenderness General Extremity: Negative for edema or pulses abnormal Neuro oriented x3, CN's II-XII intact bilaterally and no sensory deficits noted Sensorium / Orientation: awake and alert Motor Exam: strength 5/5 throughout Psych mental status grossly normal Skin no wounds Skin Narrative: Diffuse erythema blanches. No petechia, purpura, ecchymoses. No bullae. There is a little bit of sparing in the periorbital area, and on his hands but the rest of it is all coalescent. The lower legs are not quite as bad, there is some dry skin that may be consistent with his psoriasis there. No other lesions. 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 I think giving him an injection of Kenalog and then a prescription for prednisone taper to start after a couple days would be reasonable. This does not look like Sanchez-Anthony syndrome and it does not look petechial. Discharge Plan Triage Chief Complaint: Rash ED Provider: George Coelho Dx/Rx/DC Orders Clinical Impression: Allergic dermatitis Instructions: ED Contact Dermatitis Prescriptions: New prednisone 10 mg tablet 10 mg PO UD Qty: 30 0RF Rx Instructions: Take 4 tablets daily for 3 days, then 3 daily for 3 days, then 2 daily for 3 days, then 1 a day for 3 days No Action alprazolam 0.5 mg tablet 0.5 mg PO TID PRN PRN (Reason: Anxiety) Patient Comments: TAKE 1 TABLET BY MOUTH THREE TIMES DAILY NEEDED FOR ANXIETY atenolol 50 mg tablet 50 mg PO DAILY Patient Comments: TAKE 1 TABLET BY MOUTH ONCE DAILY Primary Care Provider: Nemesio Coffman Referrals: Nemesio Coffman MD [Primary Care Provider] - (call for follow up and/or allergy referral) Activity Restrictions/Additional Instructions: Given the injection of Kenalog that you received, do not start the prednisone until 4 or 5 days later. Take it as prescribed until finished. Try to get some type of full body protection to prevent skin exposure of chemical powders at work. Print Language: Croatian Disposition Disposition: Home, Self Care
[2025-03-15] MEDS: Triamcinolone Acetonide 40 MG/ML Vial IM (14:36)
[2025-03-15 15:01] VITALS: BP 125/71; PULSE 73; RESP 14; TEMP 36.8; O2SAT 99
== END 2025-03-15 15:01 | disposition home or self-care (01) ==
LOC: ED 14:29
PROVIDERS: Emergency Provider Emergency Medicine; PCP Family Medicine; Visit Provider Emergency Medicine
DX: L23.9 Allergic contact dermatitis, unspecified cause (principal); L40.50 Arthropathic psoriasis, unspecified; F41.9 Anxiety disorder, unspecified
CPT/HCPCS: 96372; 99282

== ENCOUNTER → 2025-06-07 | Outpatient (CLI) | payer OTHER, SELFPAY ==
[2025-06-07 17:40] LABS: Hematocrit 39.2 % (40-54); Hemoglobin 13.3 g/dL (13.0-16.5); Immature Granulocytes Count 0.020 X10^3/uL (0.0-0.0); Mean Corp Hgb Conc 33.9 g/dL (32-36); Mean Corpuscular Volume 88.9 fL (80-94); Mean Platelet Vol. 8.7 fl (6.2-12.0); NRBC Flagged by Analyzer 0 % (0-5); Platelet Count 230 K/mm3 (150-450); RBC Distribution Width CV 15.0 % (11.6-14.6); RBC Distribution Width SD 48.4 fl (35.1-43.9); Red Blood Count 4.41 M/mm3 (4.6-6.2); White Blood Count 5.5 K/mm3 (4.4-11.0)
[2025-06-07 18:33] LABS: AST(SGOT) 51 U/L (<=37); Alanine Aminotransfer ALT/SGPT 24 U/L (<=46); Albumin, Serum 4.7 g/dL (3.5-5.0); Alkaline Phosphatase 74 U/L (40-129); Anion Gap 17 (5-15); BUN 14 mg/dL (4-19); BUN/Creat Ratio 15.7 RATIO (10-20); Calcium,Total 9.6 mg/dL (7.6-11.0); Carbon Dioxide 20.7 mmol/L (21.0-32.0); Chloride 103 mmol/L (98-108); Globulin 2.8 g/dL (2.2-4.2); Glucose 88 mg/dL (70-99); Hepatitis B Surface Antigen Nonreactive (Nonreactive); Hepatitis C Antibody Nonreactive (Nonreactive); Potassium 3.6 mmol/L (3.3-5.1)
== END | disposition home or self-care (01) ==
LOC: MTLAB 16:21
PROVIDERS: PCP Family Medicine; Referring Provider Dermatology Pediatric Dermatology; Visit Provider Dermatology Pediatric Dermatology
DX: L40.0 Psoriasis vulgaris (principal)
CPT/HCPCS: 36415; 80053; 85025; 86480; 86708; 86803; 87340